=== PATIENT | male | born 1970 | race Hispanic/Latino ===

== ENCOUNTER 2019-07-26 11:34 | Inpatient (IN) | payer OTHER ==
[~2019-07-26] VITALS: Ht 182.9 cm; Wt 133.4 kg
[2019-07-26 12:04] LABS: BASOPHILS % (AUTO) 0.6 % (0.0-5.0); EOSINOPHILS % (AUTO) 1.6 % (0.0-8.0); HEMATOCRIT 40.4 % (42-54); LYMPHOCYTES % (AUTO) 4.9 % (21.0-51.0); MEAN CORPUSCULAR HEMOGLOBIN 29.1 pg (27.0-33.0); MEAN CORPUSCULAR HGB CONC 33.8 g/dL (32.0-36.0); MEAN CORPUSCULAR VOLUME 85.9 fL (79-99); NEUTROPHILS % (AUTO) 87.9 % (40.0-77.0); PLATELET COUNT (AUTO) 192 K/uL (130-400); RED BLOOD CELL COUNT(AUTO) 4.71 MIL/uL (4.50-6.20); RED CELL DISTRIBUTION WIDTH 13.7 % (11.0-15.5); WHITE BLOOD COUNT (AUTO) 14.2 K/uL (4.8-10.8)
[2019-07-26 12:11] LABS: INR 0.96 (0.85-1.15); PARTIAL THROMBOPLASTIN TIME 24.7 SEC (26.3-35.5); PROTHROMBIN TIME 10.1 SEC (9.6-11.6)
[2019-07-26 12:15] LABS: ALBUMIN 2.7 g/dL (3.5-5.0); BILIRUBIN,TOTAL 0.8 mg/dL (0.2-1.0); TOTAL PROTEIN, SERUM 6.7 g/dL (6.0-8.3)
[2019-07-26] MEDS ORDERED: ZOSYN 3.375GM+NS 50ML 50 ML IV ONE (12:47)
[2019-07-26] MEDS: SODIUM CHLORIDE 0.9% 1000ML 1,000 ML IV SCH (15:34)
[2019-07-26] MEDS ORDERED: DEXTROSE 50%-WATER 50 ML DISP.SYRIN IV PRN (15:45)
[2019-07-26] MEDS ORDERED: VANCOMYCIN PROTOCOL PER PHARMACY IV PRN (15:45)
[2019-07-26] MEDS ORDERED: MAG HYDROX/AL HYDROX/SIMETH ES 30 ML SUSP UDCUP PO PRN (15:45)
[2019-07-26] MEDS ORDERED: GLUCAGON 1MG KIT 1 MG ML IM PRN (15:45)
[2019-07-26] MEDS ORDERED: POTASSIUM CHLORIDE 10% ELIXIR 20 MEQ/15 ML UDCUP PO PRN (15:45)
[2019-07-26] MEDS ORDERED: POTASSIUM CHLORIDE 10MEQ/100ML 100 ML IV PRN ×2 (15:45)
[2019-07-26] MEDS ORDERED: DiphenhydrAMINE HCL 50 MG/ML VIAL IV PRN (15:45)
[2019-07-26] MEDS ORDERED: ONDANSETRON HCL 4 MG/2 ML VIAL IV PRN (15:45)
[2019-07-26] MEDS ORDERED: NITROGLYCERIN 0.4 MG SL TAB SL PRN (15:45)
[2019-07-26] MEDS ORDERED: GUAIFENESIN-DM 200/20 MG 10 ML PO PRN (15:45)
[2019-07-26] MEDS ORDERED: LACTULOSE 20 GM/30 ML UDCUP PO PRN (15:45)
[2019-07-26] MEDS ORDERED: DIPHENHYDRAMINE HCL 25 MG CAPSULE PO PRN (15:45)
[2019-07-26] MEDS ORDERED: ACETAMINOPHEN 325 MG TAB PO PRN (15:45)
[2019-07-26] MEDS ORDERED: POTASSIUM CHLORIDE 20 MEQ ERTAB PO PRN (15:45)
[2019-07-26] MEDS ORDERED: COMPOUND IV REFRIGERATED 1 EACH IVSOLN MISC PRN (16:15)
[2019-07-26] MEDS: INSULIN HUMULIN R 100 UNIT/ML 3ML SQ SCH ×2 (16:30→20:32)
[2019-07-26] MEDS ORDERED: INSULIN HUMULIN R 100 UNIT/ML 3ML ONE (16:59)
[2019-07-26 17:30] VITALS: BP 168/98
[2019-07-26] MEDS: VANCOMYCIN 1.75 GM in SODIUM CHLORIDE 0.9% 250 ML IV SCH (18:16)
[2019-07-26] MEDS: ACETAMINOPHEN 325 MG TAB PO PRN (18:16)
[2019-07-26] MEDS ORDERED: INSU3INS5 SQ (19:21)
[2019-07-26] MEDS ORDERED: INSU100V12 SQ (19:21)
[2019-07-26] MEDS ORDERED: METF-446 PO (19:21)
[2019-07-26 20:00] VITALS: BP 145/88
[2019-07-26] MEDS: ZOSYN 3.375GM+NS 50ML 50 ML IV SCH (20:26)
[2019-07-26] MEDS: INSULIN GLARGINE 100 UNITS/ML 10 ML VIAL SQ SCH (20:31)
[2019-07-27] VITALS: BP 154/89
[2019-07-27] MEDS: FAMOTIDINE 20MG TAB 20 MG TAB PO SCH ×3 (00:26→19:42)
[2019-07-27 04:00] VITALS: BP 155/95
[2019-07-27] MEDS: ZOSYN 3.375GM+NS 50ML 50 ML IV SCH ×3 (04:53→19:42)
[2019-07-27] MEDS: HYDRALAZINE HCL 20 MG/ML VIAL IV PRN ×3 (04:53→19:54)
[2019-07-27] MEDS: KETOROLAC TROMETHAMINE 30MG/ML IVP PRN ×2 (04:53→19:54)
[2019-07-27] MEDS: SODIUM CHLORIDE 0.9% 1000ML 1,000 ML IV SCH ×2 (04:54→18:14)
[2019-07-27] MEDS: INSULIN HUMULIN R 100 UNIT/ML 3ML SQ SCH ×4 (07:30→21:00)
[2019-07-27] MEDS ORDERED: FLU VACC QS2019-20 36MOS UP/PF 60 MCG/0.5 ML ML IM SCH (07:45)
[2019-07-27 08:00] VITALS: BP 153/89
[2019-07-27] MEDS: VANCOMYCIN 1.75 GM in SODIUM CHLORIDE 0.9% 250 ML IV SCH ×2 (08:28→19:42)
[2019-07-27] MEDS: ENOXAPARIN SODIUM 40 MG/0.4 ML SYRINGE SQ SCH (08:29)
[2019-07-27 12:00] VITALS: BP 159/93
[2019-07-27] MEDS: ACETAMINOPHEN 325 MG TAB PO PRN (15:38)
[2019-07-27 16:00] VITALS: BP 160/93
--- NOTE | 2019-07-27 18:09 | NUR ---
INITIAL: Met w pt/spouse this afternoon to discuss dcp. Prior to admission pt was living w spouse. He is independent w ambulation and ADLs. He does not own any DME or receive services. Per spouse, if IV ABX needed they would prefer [facility]. DCP for home. CM to continue to follow and wait for Md recommendations. Addendum: 07/27/19 at 1811 by MEME PURCELL CM Amended: Links added.
[2019-07-27] MEDS: INSULIN GLARGINE 100 UNITS/ML 10 ML VIAL SQ SCH (19:56)
[2019-07-27 20:00] VITALS: BP 153/92
[2019-07-28] VITALS (7 sets, daily range): BP systolic 152–172; BP diastolic 76–97
[2019-07-28] MEDS: ZOSYN 3.375GM+NS 50ML 50 ML IV SCH ×3 (06:04→21:56)
[2019-07-28] MEDS: INSULIN HUMULIN R 100 UNIT/ML 3ML SQ SCH ×4 (06:05→21:00)
[2019-07-28] MEDS: SODIUM CHLORIDE 0.9% 1000ML 1,000 ML IV SCH (06:06)
[2019-07-28 06:19] LABS: BASOPHILS % (AUTO) 1.1 % (0.0-5.0); EOSINOPHILS % (AUTO) 6.9 % (0.0-8.0); HEMATOCRIT 36.4 % (42-54); LYMPHOCYTES % (AUTO) 10.6 % (21.0-51.0); MEAN CORPUSCULAR HEMOGLOBIN 29.6 pg (27.0-33.0); MEAN CORPUSCULAR HGB CONC 33.9 g/dL (32.0-36.0); MEAN CORPUSCULAR VOLUME 87.4 fL (79-99); MONOCYTES % (AUTO) 6.6 % (3.0-13.0); NEUTROPHILS % (AUTO) 74.8 % (40.0-77.0); PLATELET COUNT (AUTO) 167 K/uL (130-400); RED BLOOD CELL COUNT(AUTO) 4.16 MIL/uL (4.50-6.20); WHITE BLOOD COUNT (AUTO) 8.7 K/uL (4.8-10.8)
[2019-07-28] MEDS: VANCOMYCIN 1.75 GM in SODIUM CHLORIDE 0.9% 250 ML IV SCH ×2 (09:00→21:56)
[2019-07-28] MEDS: FAMOTIDINE 20MG TAB 20 MG TAB PO SCH ×2 (09:16→21:56)
[2019-07-28] MEDS: SILVER SULFADIAZINE CREAM 400 GM TP SCH ×2 (09:16→22:04)
[2019-07-28] MEDS: ENOXAPARIN SODIUM 40 MG/0.4 ML SYRINGE SQ SCH (09:16)
[2019-07-28 11:10] LABS: CREATININE 2.1 mg/dL (0.5-1.5); POTASSIUM 3.8 mmol/L (3.5-5.1)
[2019-07-28] MEDS ORDERED: DIPH,PERTUSS(ACELL),TET VAC/PF 0.5 ML VIAL IM ONE (15:30)
[2019-07-28] MEDS: HYDRALAZINE HCL 20 MG/ML VIAL IV PRN (16:33)
[2019-07-28] MEDS: INSULIN GLARGINE 100 UNITS/ML 10 ML VIAL SQ SCH (22:03)
[2019-07-29] VITALS (7 sets, daily range): BP systolic 153–179; BP diastolic 84–99
[2019-07-29] MEDS: ZOSYN 3.375GM+NS 50ML 50 ML IV SCH ×3 (05:01→20:46)
[2019-07-29 06:04] LABS: MEAN CORPUSCULAR HEMOGLOBIN 29.5 pg (27.0-33.0); MEAN CORPUSCULAR HGB CONC 34.3 g/dL (32.0-36.0); NUCLEATED RED BLOOD CELLS 0.1 % (0.0-0.19); PLATELET COUNT (AUTO) 210 K/uL (130-400); RED BLOOD CELL COUNT(AUTO) 4.18 MIL/uL (4.50-6.20); RED CELL DISTRIBUTION WIDTH 13.7 % (11.0-15.5); WHITE BLOOD COUNT (AUTO) 6.4 K/uL (4.8-10.8)
[2019-07-29 06:21] LABS: POTASSIUM 4.2 mmol/L (3.5-5.1)
[2019-07-29] MEDS: INSULIN HUMULIN R 100 UNIT/ML 3ML SQ SCH ×4 (06:51→20:30)
[2019-07-29] MEDS: INSULIN GLARGINE 100 UNITS/ML 10 ML VIAL SQ SCH ×2 (06:52→20:43)
[2019-07-29 07:42] LABS: BAND NEUTROPHILS % (MANUAL) 2 % (0-2); EOSINOPHILS % (MANUAL) 14 % (1-6); LYMPHOCYTES % (MANUAL) 15 % (22-44); MONOCYTES % (MANUAL) 9 % (2-9); SEGMENTED NEUTROPHILS % 60 % (40-70)
[2019-07-29 07:43] LABS: MAN.DIFF COMMENT-IMPRESSION MANUAL DIFFERENTIAL; PLATELET MORPHOLOGY COMMENT ADEQUATE
[2019-07-29] MEDS: HYDRALAZINE HCL 20 MG/ML VIAL IV PRN (08:21)
[2019-07-29] MEDS: FAMOTIDINE 20MG TAB 20 MG TAB PO SCH ×2 (08:21→20:45)
[2019-07-29] MEDS: METFORMIN HCL 500 MG TABLET PO SCH (08:21)
[2019-07-29] MEDS: ACETAMINOPHEN 325 MG TAB PO PRN (08:22)
[2019-07-29] MEDS: ENOXAPARIN SODIUM 40 MG/0.4 ML SYRINGE SQ SCH (08:22)
[2019-07-29] MEDS: SILVER SULFADIAZINE CREAM 400 GM TP SCH ×2 (08:31→20:46)
[2019-07-29] MEDS ORDERED: VANCOMYCIN 1.5 GM in SODIUM CHLORIDE 0.9% 250 ML IV SCH (09:00)
--- NOTE | 2019-07-29 11:24 | NUR ---
RECEIVED REPORT FROM SHANEL PORTILLO. CARE RESUMED AT THIS TIME
[2019-07-29] MEDS ORDERED: AMLODIPINE BESYLATE 5 MG TAB PO SCH (15:30)
[2019-07-29] MEDS ORDERED: AMLO5TAB4 PO (15:36)
[2019-07-29] MEDS ORDERED: HYDRALAZINE HCL 20 MG/ML VIAL IV PRN (15:45)
[2019-07-30 01:22] VITALS: BP 158/87
[2019-07-30 04:00] VITALS: BP 124/66
[2019-07-30] MEDS: ZOSYN 3.375GM+NS 50ML 50 ML IV SCH (04:51)
[2019-07-30] MEDS: INSULIN HUMULIN R 100 UNIT/ML 3ML SQ SCH ×2 (05:48→11:30)
[2019-07-30] MEDS: INSULIN GLARGINE 100 UNITS/ML 10 ML VIAL SQ SCH (06:30)
[2019-07-30 08:00] VITALS: BP 155/95
[2019-07-30] MEDS: FAMOTIDINE 20MG TAB 20 MG TAB PO SCH (08:57)
[2019-07-30] MEDS: METFORMIN HCL 500 MG TABLET PO SCH (08:57)
[2019-07-30] MEDS: ENOXAPARIN SODIUM 40 MG/0.4 ML SYRINGE SQ SCH (08:58)
[2019-07-30] MEDS ORDERED: AMLODIPINE BESYLATE 5 MG TAB PO SCH (09:00)
[2019-07-30] MEDS: SILVER SULFADIAZINE CREAM 400 GM TP SCH (09:05)
--- NOTE | 2019-07-30 11:57 | NUR ---
DISCHARGE INSTRUCTIONS GIVEN AND ALL QUESTION ANSWERED . IV DISCONTINUED WITH INNER CANNULA INTACT. INFORMED TO FOLLOW UP WITH DOCTORS INDICATED
== END 2019-07-30 12:00 | disposition home or self-care (01) | DRG 854 ==
LOC: EDH 11:34 → EDHIP 15:34 → 3BH 17:26
PROVIDERS: ADMIT Family Medicine; ATTEND Family Medicine
PROC: 0JBQ0ZZ Excision of Right Foot Subcutaneous Tissue and Fascia, Open Approach (ICD-10-PCS; principal; 2019-07-27)
PROC: 3E0234Z Introduction of Serum, Toxoid and Vaccine into Muscle, Percutaneous Approach (ICD-10-PCS; 2019-07-28)
PROC: 3E02340 Introduction of Influenza Vaccine into Muscle, Percutaneous Approach (ICD-10-PCS; 2019-07-29)
DX: A41.50 Gram-negative sepsis, unspecified (principal); L03.115 Cellulitis of right lower limb; L02.611 Cutaneous abscess of right foot; N17.9 Acute kidney failure, unspecified; M86.8X7 Other osteomyelitis, ankle and foot; E11.621 Type 2 diabetes mellitus with foot ulcer; L97.519 Non-pressure chronic ulcer of other part of right foot with unspecified severity; E11.22 Type 2 diabetes mellitus with diabetic chronic kidney disease; N18.9 Chronic kidney disease, unspecified; I12.9 Hypertensive chronic kidney disease with stage 1 through stage 4 chronic kidney disease, or unspecified chronic kidney disease; B96.20 Unspecified Escherichia coli [E. coli] as the cause of diseases classified elsewhere; B96.5 Pseudomonas (aeruginosa) (mallei) (pseudomallei) as the cause of diseases classified elsewhere; B95.1 Streptococcus, group B, as the cause of diseases classified elsewhere; E11.69 Type 2 diabetes mellitus with other specified complication; E66.9 Obesity, unspecified; Z82.49 Family history of ischemic heart disease and other diseases of the circulatory system; Z90.49 Acquired absence of other specified parts of digestive tract; Z68.39 Body mass index [BMI] 39.0-39.9, adult; Z23 Encounter for immunization; Z83.3 Family history of diabetes mellitus; Z79.899 Other long term (current) drug therapy
CPT/HCPCS: 36415; 73630; 73718; 80048; 80053; 80202; 82550; 82948; 84484; 85025; 85610; 85651; 85730; 86140; 87040; 87070; 87077; 87186; 90715; 93005; 93925; 93971; G0378; J0360; J1200; J1650; J1815; J1885; J2543; J3370; J7030; Q2035

== ENCOUNTER → 2021-01-27 | Outpatient (CLI) | payer OTHER ==
[~2021-01-27] MED LIST: AMLO5TAB4 PO; INSU100V12 SQ; INSU3INS5 SQ; METF-446 PO; PERFLUTREN PROTEIN-A MICROSPHR 0.22 MG/ML VIAL IV ONE
== END | disposition home or self-care (01) ==
LOC: RAH 08:55
PROVIDERS: ATTEND Internal Medicine Cardiovascular Disease
DX: I10 Essential (primary) hypertension (principal)
CPT/HCPCS: C8929; Q9956; 93356

== ENCOUNTER → 2021-02-14 | Outpatient (CLI) | payer OTHER ==
[~2021-02-14] VITALS: Ht 185.4 cm; Wt 124.7 kg
[~2021-02-14] MED LIST changes: -PERFLUTREN PROTEIN-A MICROSPHR 0.22 MG/ML VIAL IV ONE; +REGADENOSON 0.4 MG/5 ML PF SYG IVP ONE; +REGADENOSON 0.4 MG/5 ML PF SYG IVP SCH
== END | disposition home or self-care (01) ==
LOC: SHCH 08:21
PROVIDERS: ATTEND Internal Medicine Cardiovascular Disease
DX: I42.9 Cardiomyopathy, unspecified (principal); R06.00 Dyspnea, unspecified; I51.7 Cardiomegaly
CPT/HCPCS: 78452; 93017; 96374; A9500 ×2; J2785

== ENCOUNTER → 2021-03-15 | Outpatient (CLI) | payer OTHER ==
[~2021-03-15] VITALS: Ht 185.4 cm; Wt 117.1 kg
[~2021-03-15] MED LIST changes: +CARV12.511 PO; +CHOL-34 PO; +FERR-72 PO; +FOLI1TAB61 PO; -REGADENOSON 0.4 MG/5 ML PF SYG IVP ONE; -REGADENOSON 0.4 MG/5 ML PF SYG IVP SCH; +SACU1TAB7 PO; +SODIUM CHLORIDE 0.9% 500ML 500 ML IV SCH; +TORS20TA4 PO
[2021-03-15 09:51] LABS: BASOPHILS % (AUTO) 0.7 % (0.0-5.0); EOSINOPHILS % (AUTO) 6.1 % (0.0-8.0); HEMATOCRIT 30.8 % (42-54); MEAN CORPUSCULAR HEMOGLOBIN 28.3 pg (27.0-33.0); MEAN CORPUSCULAR HGB CONC 32.8 g/dL (32.0-36.0); MEAN CORPUSCULAR VOLUME 86.3 fL (79-99); NEUTROPHILS % (AUTO) 81.8 % (40.0-77.0); PLATELET COUNT (AUTO) 254 K/uL (130-400); RED BLOOD CELL COUNT(AUTO) 3.57 MIL/uL (4.50-6.20); RED CELL DISTRIBUTION WIDTH 14.6 % (11.0-15.5)
[2021-03-15 09:57] LABS: APPEARANCE,URINE Clear (CLEAR); BILIRUBIN,URINE Negative (NEGATIVE); COLOR,URINE Yellow (YELLOW); GLUCOSE, URINE (UA) 250 mg/dL (NEGATIVE); KETONES,URINE Negative (NEGATIVE); LEUKOCYTE ESTERASE ,URINE Negative (NEGATIVE); NITRATE,URINE Negative (NEGATIVE); OCCULT BLOOD,URINE Small (NEGATIVE); PH,URINE 5.5 (5.0-8.0); PROTEIN,URINE 300 mg/dL (NEGATIVE); UROBILINOGEN,URINE 0.2 mg/dL (0.2-1.0)
[2021-03-15 10:03] LABS: INR 1.12 (0.85-1.15); PROTHROMBIN TIME 12.1 SEC (9.6-11.6)
[2021-03-15 10:04] LABS: PARTIAL THROMBOPLASTIN TIME 29.9 SEC (26.3-35.5)
[2021-03-15 10:09] LABS: ALBUMIN 2.6 g/dL (3.5-5.0); BILIRUBIN,TOTAL 0.8 mg/dL (0.2-1.0); POTASSIUM 5.3 mmol/L (3.5-5.1); TOTAL PROTEIN, SERUM 7.2 g/dL (6.0-8.3)
[2021-03-15 10:12] LABS: RBC,URINE 0-1 /HPF (0-1); WBC,URINE 0-1 /HPF (0-1)
[2021-03-15 10:13] LABS: BACTERIA,URINE None Seen /HPF (None Seen); HYALINE CASTS, URINE 0-1 /LPF (0-1 /LPF); SQUAMOUS EPITHELIAL CELL,UR 0-2 /HPF (0-2)
[2021-03-16 11:20] VITALS: BP 135/80
== END | disposition home or self-care (01) ==
LOC: EDSTATUS 08:00 → DAH 10:00
PROVIDERS: ATTEND Internal Medicine Cardiovascular Disease
DX: Z01.810 Encounter for preprocedural cardiovascular examination (principal); I25.10 Atherosclerotic heart disease of native coronary artery without angina pectoris; I50.9 Heart failure, unspecified; I48.92 Unspecified atrial flutter; Z79.01 Long term (current) use of anticoagulants
CPT/HCPCS: 36415; 71045; 80053; 80061; 81001; 85025; 85610; 85730; 93005

== ENCOUNTER 2023-10-29 15:40 | Emergency (ER) | payer BC, OTHER ==
[~2023-10-29] VITALS: Ht 185.4 cm; Wt 133.8 kg
[~2023-10-29 15:40] MED LIST changes: +AMLO-257 PO; -AMLO5TAB4 PO; -CARV12.511 PO; +CARV25TA PO; -CHOL-34 PO; +CHOL500062 PO; -INSU100V12 SQ; -INSU3INS5 SQ; +LINA5TAB PO; -METF-446 PO; -SACU1TAB7 PO; +SODI650T PO; -SODIUM CHLORIDE 0.9% 500ML 500 ML IV SCH
[2023-10-29 16:06] VITALS: BP 111/65; PULSE 57; RESP 18
[2023-10-29 16:35] LABS: BASOPHILS # (AUTO) 0.02 K/uL (0.00-0.20); BASOPHILS % (AUTO) 0.5 % (0.0-5.0); EOSINOPHILS # (AUTO) 0.07 K/uL (0.00-0.70); EOSINOPHILS % (AUTO) 1.8 % (0.0-8.0); HEMATOCRIT 24.4 % (42-54); IMMATURE GRANULOCYTE ABSOLUTE 0.01 K/uL (0-1); LYMPHOCYTES # (AUTO) 0.3 K/uL (1.0-4.8); LYMPHOCYTES % (AUTO) 7.6 % (21.0-51.0); MEAN CORPUSCULAR HEMOGLOBIN 32.7 pg (27.0-33.0); MEAN CORPUSCULAR HGB CONC 33.6 g/dL (32.0-36.0); MEAN CORPUSCULAR VOLUME 97.2 fL (79-99); MONOCYTES # (AUTO) 0.5 K/uL (0.1-1.0); MONOCYTES % (AUTO) 12.9 % (3.0-13.0); NEUTROPHILS # (AUTO) 2.9 K/uL (1.8-7.7); NEUTROPHILS % (AUTO) 76.9 % (40.0-77.0); PLATELET COUNT (AUTO) 124 K/uL (130-400); RED BLOOD CELL COUNT(AUTO) 2.51 MIL/uL (4.50-6.20); RED CELL DISTRIBUTION WIDTH 14.4 % (11.0-15.5); WHITE BLOOD COUNT (AUTO) 3.8 K/uL (4.8-10.8)
[2023-10-29 16:50] LABS: B-TYPE NATRIURETIC PEPTIDE 676 pg/mL (0-100)
[2023-10-29 16:53] LABS: RAPID GROUP A STREP negative (NEGATIVE)
[2023-10-29 17:02] LABS: SARS-CoV-2, RNA, NAAT POSITIVE SARS CoV-2 (NEGATIVE)
[2023-10-29 17:03] LABS: ALBUMIN 3.5 g/dL (3.5-5.0); BILIRUBIN,TOTAL 0.6 mg/dL (0.2-1.0); POTASSIUM 4.5 mmol/L (3.5-5.1); TOTAL PROTEIN, SERUM 7.1 g/dL (6.0-8.3)
[2023-10-29 17:05] LABS: CREATININE 9.3 mg/dL (0.5-1.5)
[2023-10-29 17:05] LABS: INFLUENZA TYPE B Negative For Type B (NEGATIVE)
[2023-10-29 17:35] LABS: INFLUENZA TYPE A Positive For Type A (NEGATIVE)
[2023-10-29] MEDS ORDERED: ALBUHFA IH (20:24)
[2023-10-29] MEDS ORDERED: OSEL75 PO (20:24)
[2023-10-29] MEDS ORDERED: BENZ-39 PO (20:24)
== END 2023-10-29 20:42 | disposition home or self-care (01) ==
LOC: EDH 15:40
DX: U07.1 COVID-19 (principal); I12.0 Hypertensive chronic kidney disease with stage 5 chronic kidney disease or end stage renal disease; E11.22 Type 2 diabetes mellitus with diabetic chronic kidney disease; N18.6 End stage renal disease; J10.1 Influenza due to other identified influenza virus with other respiratory manifestations; R05.9 Cough, unspecified; R06.00 Dyspnea, unspecified; E78.00 Pure hypercholesterolemia, unspecified; Z90.49 Acquired absence of other specified parts of digestive tract
CPT/HCPCS: 36415; 71045; 80053; 83880; 84484; 85025; 87635; 87804; 87880

== ENCOUNTER 2025-07-10 07:12 | Day surgery (SDC) | payer BC ==
[2025-07-09 15:00] LABS: NUCLEATED RED BLOOD CELLS 0.0 % (0.0-0.19); PLATELET COUNT (AUTO) 210.0 K/uL (130-400); RED BLOOD CELL COUNT(AUTO) 3.31 MIL/uL (4.50-6.20); RED CELL DISTRIBUTION WIDTH 14.1 % (11.0-15.5); WHITE BLOOD COUNT (AUTO) 8.8 K/uL (4.8-10.8)
[2025-07-09 15:10] LABS: INR 1.04 (0.85-1.15)
[2025-07-09 15:13] VITALS: BP 177/83; PULSE 77; RESP 18; TEMP 97.9
[2025-07-09 15:17] LABS: GLOMERULAR FILTR. RATE CALC 5.0 mL/min (>90); GLUCOSE,RANDOM 130.0 mg/dL (70-105); SODIUM SERUM 139.0 mmol/L (136-145); UREA NITROGEN, BLOOD 67.0 mg/dL (7-18)
[2025-07-09 15:20] LABS: CREATININE 11.5 mg/dL (0.5-1.3)
--- NOTE | 2025-07-09 15:31 | NUR ---
report dr alvarez reviewed ekg. ok to proceed
--- NOTE | 2025-07-09 15:49 | HMCIMG ---
CHEST 1VW REASON: PREOP COMPARISON: None. FINDINGS: Single view of the chest was obtained. Lungs are clear. Heart size is normal. There is uncoiling atherosclerotic change of thoracic aorta. There is no pulmonary vascular congestion. Mediastinum and bony thorax appear unremarkable. IMPRESSION: 1. Normal single view chest x-ray.
--- NOTE | 2025-07-09 20:17 | EKG ---
[facility] Test Date: 2025-07-09 Test Time: 14:39:16 Pat Name: RHYS HENNING Department: [facility] Room: [facility] Gender: M Supervisor Extrusion: [id number] : 1970 Requested By: LUIS THOMPSON Order Number: [id number] Reading MD: Fer Olivas Measurements Intervals [place] Rate: 72 P: 31 WY: 207 QRS: 9 QRSD: 106 T: 103 QT: 421 QTc: 460 Interpretive Statements Sinus rhythm Borderline prolonged [place] interval Low voltage, precordial leads Nonspecific T abnormalities, lateral leads Compared to ECG 11/19/2022 22:03:36 Low QRS voltage now present Myocardial infarct finding no longer present Possible ischemia no longer present T-wave abnormality still present Electronically Signed On 07-12-2025 21:29:55 CDT by Fer Olivas Please click the below link to view image of tracing.
[~2025-07-10] VITALS: Ht 182.9 cm; Wt 107.7 kg
[2025-07-10] VITALS (16 sets, daily range): BP systolic 149–167; BP diastolic 59–82; PULSE 67–80; RESP 13–16; TEMP 97.2–97.7
[~2025-07-10 07:12] MED LIST changes: -AMLO-257 PO; -CARV25TA PO; -CHOL500062 PO; +CINA30TA5 PO; +FOLI0.8T22 PO; -FOLI1TAB61 PO; -LINA5TAB PO; +LOSA100T59 PO; +SEVE0.8P PO; -SODI650T PO; +TORS100T16 PO; -TORS20TA4 PO; +auryxia PO
[2025-07-10] MEDS ORDERED: HEParin-NS 1,000 UNIT/500 ML 500 ML IV ONE (07:21)
[2025-07-10] MEDS ORDERED: LIDOCAINE PF 100MG/5ML (2%) SYRINGE 5ML ONE (08:06)
[2025-07-10] MEDS ORDERED: NEOSTIGMINE METHYLSULFATE 1MG/ML IV ONE (08:07)
[2025-07-10] MEDS ORDERED: GLYCOPYRROLATE 0.2 MG/ML 5 ML VIAL ONE (08:07)
[2025-07-10 08:22] LABS: GLOMERULAR FILTR. RATE CALC 5.0 mL/min (>90); GLUCOSE,RANDOM 125.0 mg/dL (70-105); SODIUM SERUM 140.0 mmol/L (136-145); UREA NITROGEN, BLOOD 65.0 mg/dL (7-18)
[2025-07-10 08:25] LABS: CREATININE 11.2 mg/dL (0.5-1.3)
[2025-07-10] MEDS ORDERED: LIDOCAINE 1%-EPI 1:100,000 20 ML VIAL ONE (08:43)
--- NOTE | 2025-07-10 09:27 | OP ---
DATE OF PROCEDURE: 07/10/2025 PREOPERATIVE DIAGNOSES: Left upper extremity steal syndrome. POSTOPERATIVE DIAGNOSES: Left upper extremity steal syndrome. PROCEDURE PERFORMED: Ligation of left upper extremity AV fistula. OPERATING SURGEON: Riaz Perales MD ELEVATOR ADJUSTER: [place] Blevins. ANESTHESIOLOGIST: Dr. Romero Jorgensen. TYPE OF ANESTHESIA: General endotracheal anesthesia. BRIEF HISTORY: The patient is a 54-year-old male who has a left brachiocephalic AV fistula. He is having pain and weakness in his left upper extremity with evidence of muscle atrophy. This was consistent with steal syndrome. The patient no longer needs the AV fistula as he is currently having his end-stage renal disease treated with peritoneal dialysis. He presents now for ligation of the left AV fistula. DESCRIPTION OF PROCEDURE: The patient was brought to the operating room and placed on the operating table in the supine position. He was given general endotracheal anesthesia. After placing lines and catheters, his left arm was prepped and draped in the usual sterile fashion. His previous antecubital fossa incisional scar was excised. The cephalic vein just proximal to the anastomosis was dissected out and double tied with 2-0 silk sutures. Between the two sutures, a stick tie of 5-0 Prolene was placed. The wound was then injected with 3 mL of a 50:50 mixture of 0.25% Marcaine and 1% lidocaine. The wound was then closed with two layers of running Vicryl suture. The skin was closed using a running intracuticular Monocryl stitch. The wounds were cleaned and dried, covered with bandage and the patient was undraped, extubated, and taken to the recovery room in stable condition. TID: [id number] RECEIPT: [id number] cc: Dr. Mello , [place] Eli
--- NOTE | 2025-07-10 10:37 | NUR ---
FULL AND COMPLETE DISCHARGE INSTRUCTIONS GIVEN TO PATIENT AND FRIEND BOTH VERBALLY AND IN WRITING. VOICED UNDERSTANDING TO SURGICAL PROCEDURE FOLLOW UP. THRILL AND BRUIT EVIDENT WITH DRESSING CLEAN AND DRY. HAND WARM TO TOUCH AND NEUROVASCULARLY INTACT. EXPECTIONS AND PRECAUTIONS. PATIENT DENIES C/O PAIN OR NEED. PIV REMOVED WITH CATHETER TIP INTACT. W/C TO POV WITH FRIEND TO HOME SCHEDULED.
== END 2025-07-10 10:44 | disposition home or self-care (01) ==
LOC: DAH 07:12
PROVIDERS: ATTEND Thoracic Surgery (Cardiothoracic Vascular Surgery)
DX: T82.898A Other specified complication of vascular prosthetic devices, implants and grafts, initial encounter (principal); I77.0 Arteriovenous fistula, acquired; I12.0 Hypertensive chronic kidney disease with stage 5 chronic kidney disease or end stage renal disease; E11.22 Type 2 diabetes mellitus with diabetic chronic kidney disease; I44.0 Atrioventricular block, first degree; N18.6 End stage renal disease; Z79.82 Long term (current) use of aspirin; Z79.01 Long term (current) use of anticoagulants; Z79.899 Other long term (current) drug therapy; Y83.8 Other surgical procedures as the cause of abnormal reaction of the patient, or of later complication, without mention of misadventure at the time of the procedure
CPT/HCPCS: 80048 ×2; 85027; 85610; 85730; 86850; 86900; 86901; 36415 ×2; 71045; 93005; 37607; 82948 ×2; A6260; A4663; J3010; J0690 ×2; J3490 ×3; J1100; J0665; J2003; J2704; J2710; J1644; A4649 ×2; A4930; A4215; A4213; A4222; A4221; A4216; A4450; A4223 ×2